=== PATIENT | male | born 1975 ===

== ENCOUNTER → 2017-07-20 | Outpatient (CLI) | payer OTHER ==
--- NOTE | 2017-07-21 07:46 | CPEEG ---
[f rep st] ELECTROENCEPHALOGRAM EEG DATE OF STUDY: 07/20/2017 INTERPRETATION: Normal EEG during wakefulness and drowsiness. There were no potentially epileptogenic abnormalities present during the recording. REPORT: This EEG contains 9 Hz alpha activity over the posterior head regions. There was no abnormal activation at rest, during photic stimulation, or hyperventilation. The patient became drowsy during this study. There was no abnormal activation during drowsiness or during times of arousal. On EPOCH 130 , there was what appears to be artifactual slowing over the right temporal head region that appears to be related to electrooculogram artifact. /[id number]/MODL MTDD
== END ==
LOC: FCPNEURO 07:56
PROVIDERS: ATTEND Psychiatry & Neurology Neurology
DX: R55 Syncope and collapse (principal)

== ENCOUNTER → 2017-08-24 | Outpatient (CLI) | payer OTHER | LOC: FIMAGING 07:50 | DX: R55 Syncope and collapse (principal) ==